=== PATIENT | male | born 1950 | race Caucasian/White ===

== ENCOUNTER → 2022-12-29 07:07 | Outpatient (CLI) | payer MEDICARE, SELFPAY ==
--- NOTE | 2022-12-29 07:11 | DI.MRI.S_ITS ---
PROCEDURE: MR LUMBAR SPINE WO CON INDICATIONS: Spondylosis without myelopathy or radiculopathy TECHNIQUE: Noncontrast sagittal T1 spin echo and T2 fast echo, sagittal STIR, and T2 fast spin echo through the lumbar spine. In cases with scoliosis, additional coronal T2 fast spin echo may be performed. COMPARISON: [facility], [place], PET NECK TO MID THIGH, 07/17/2022, 9:03. FINDINGS: Image quality: Excellent. Alignment and Curvature: There is normal bony alignment. Bone Marrow: T2 hyperintense signal within the left-sided lamina L1 (series 4, image 12). Prominent Schmorl's node in the inferior endplate of L1. Spinal Cord: Conus medullaris terminates at the L2 level. Visualized cord demonstrates normal signal and size. Paraspinous Soft Tissues: No paravertebral masses. T12-L1: Disc desiccation and mild disc height loss. Ligamentum flavum hypertrophy. L1-L2: Disc desiccation. Asymmetric left extraforaminal disc bulge. Mild bilateral neural foraminal narrowing. L2-L3: Disc desiccation. Broad-based disc bulge. Ligamentum flavum and facet hypertrophy causing mild spinal canal narrowing. L3-L4: Disc desiccation, broad-based disc bulge, facet hypertrophy and ligamentum flavum hypertrophy causing mild spinal canal narrowing. Moderate right neural foraminal narrowing and mild left neural foraminal narrowing. L4-L5: Disc desiccation, broad-based disc bulge, ligamentum flavum hypertrophy. Moderate to severe right and [id number] left neural foraminal narrowing. L5-S1: Disc desiccation. Mild facet arthrosis. Moderate right and mild left neural foraminal narrowing. IMPRESSION: Atypical bone marrow signal in the left lamina of L1. Osseous metastatic disease not excluded in the setting of lymphoma. This could be confirmed with lumbar MRI with and without contrast. Multilevel degenerative disc disease and facet arthrosis, most prominent at L4-5 with moderate to severe right and [id number] left neural foraminal narrowing, and L5-S1, with moderate right and mild left neural foraminal narrowing. Dictated by: Kirby Parada M.D. on 12/31/2022 at 12:25 Approved by: Kirby Parada M.D. on 12/31/2022 at 12:32
== END ==
PROVIDERS: PCP Family Medicine; Referring Provider Physical Medicine & Rehabilitation Pain Medicine; Visit Provider Physical Medicine & Rehabilitation Pain Medicine
DX: M47.816 Spondylosis without myelopathy or radiculopathy, lumbar region (principal); M47.817 Spondylosis without myelopathy or radiculopathy, lumbosacral region; M51.36 Other intervertebral disc degeneration, lumbar region; M48.061 Spinal stenosis, lumbar region without neurogenic claudication; M48.07 Spinal stenosis, lumbosacral region
CPT/HCPCS: 72148